=== PATIENT | female | born 1985 | race Caucasian/White ===

== ENCOUNTER 2017-06-27 11:06 | Day surgery (SDC) | payer BC, OTHER ==
[~2017-06-27 11:06] MED LIST: DIPHENHYDRAMINE HCL 50 MG/ML VIAL ONE; EPINEPHRINE INJ 1 MG/10 ML DISP.SYRIN ONE; FENTANYL CITRATE INJ/PF 100 MCG/2 ML AMPUL ONE; FLUMAZENIL INJ 0.5 MG/5 ML VIAL ONE; GLUCAGON,HUMAN RECOMB 1 MG INJ ONE; NALOXONE HCL INJ/PF 0.4 MG/1 ML SDV ONE; ONDANSETRON HCL INJ/PF 4 MG/2 ML SDV ONE
[2017-06-27] MEDS: MIDAZOLAM 2 MG/2 ML INJ ONE ×3 (11:36→11:42)
--- NOTE | 2017-06-27 11:52 | Operative Report ---
Operative Report DATE OF SURGERY: 06/27/17 Operative Report: The risks benefits and alternatives of the procedure explained to the patient in detail and informed consent is obtained.A GIF Olympus video scope was inserted into the patient's mouth and hypopharynx ,the esophagus is identified intubated and insufflated, the scope was then advanced through the esophagus stomach and duodenum ,retroflexion maneuver is done, the esophagus stomach and first and second portions of the duodenum examined PREOPERATIVE DIAGNOSIS: Dysphagia, gastroesophageal reflux disease POSTOPERATIVE DIAGNOSIS: Esophageal ring status post biopsy rule out eosinophilic esophagitis. Hiatal hernia. Schatzki's ring. Severe erosive esophagitis. Gastritis status post biopsy rule out Helicobacter pylori OPERATION: EGD with biopsy SURGEON: KOBI STERN ANESTHESIA: Moderate Sedation - 6 mg of Versed, 100 mcg of fentanyl. Conscious sedation monitoring time 30 minutes. TISSUE REMOVED OR ALTERED: Esophageal mucosal specimens obtained. Gastric mucosal specimens obtained COMPLICATIONS: None. ESTIMATED BLOOD LOSS: None. INTRAOPERATIVE FINDINGS: As described above. PROCEDURE: Patient tolerated procedure well. No immediate postprocedure complications are noted. Patient discharged in good condition. Discharge date 06/27/2017. Discharge diet: Regular. Discharge activity: Regular. 2-3 week follow-up to discuss findings. Patient is instructed to call the office should there be any further problems or questions. We will wait on pathology. We will treat if positive for Helicobacter pylori.
[2017-06-27] MEDS ORDERED: ACETAMINOPHEN 325 MG TABLET ONE (12:42)
[2017-06-27 13:05] VITALS: BP 115/76
== END 2017-06-27 13:15 | disposition home or self-care (01) ==
LOC: END 11:06
PROVIDERS: ATTEND Internal Medicine Gastroenterology
PROC: 0DB58ZX Excision of Esophagus, Via Natural or Artificial Opening Endoscopic, Diagnostic (ICD-10-PCS; 2017-06-27)
PROC: 0DB68ZX Excision of Stomach, Via Natural or Artificial Opening Endoscopic, Diagnostic (ICD-10-PCS; principal; 2017-06-27 11:30)
DX: K29.50 Unspecified chronic gastritis without bleeding (principal); K22.2 Esophageal obstruction; K44.9 Diaphragmatic hernia without obstruction or gangrene; K20.9 Esophagitis, unspecified; Z79.51 Long term (current) use of inhaled steroids; Z79.899 Other long term (current) drug therapy
CPT/HCPCS: 43239; 88305 ×2; J2250; J3010; J0171; J1200; J1610; J2310; J2405; J3490

== ENCOUNTER 2017-08-15 08:24 | Day surgery (SDC) | payer OTHER ==
[~2017-08-15 08:24] MED LIST changes: -FENTANYL CITRATE INJ/PF 100 MCG/2 ML AMPUL ONE
[2017-08-15] MEDS: MIDAZOLAM 2 MG/2 ML INJ ONE ×3 (09:58→10:04)
[2017-08-15] MEDS: FENTANYL CITRATE INJ/PF 100 MCG/2 ML AMPUL ONE ×2 (10:00→10:03)
[2017-08-15 11:14] VITALS: BP 109/91
--- NOTE | 2017-08-15 11:14 | Operative Report ---
Operative Report DATE OF SURGERY: 08/15/17 Operative Report: The risks benefits and alternatives of the procedure explained to the patient in detail and informed consent is obtained.A GIF Olympus video scope was inserted into the patient's mouth and hypopharynx, the esophagus is identified intubated and insufflated ,the scope was then advanced through the esophagus stomach and duodenum, retroflexion maneuver is done ,the esophagus stomach and first and second portions of the duodenum examined PREOPERATIVE DIAGNOSIS: Follow-up esophageal ulcer. POSTOPERATIVE DIAGNOSIS: Healed esophageal ulcer. Less evidence of eosinophilic esophagitis. Hiatal hernia. Gastritis mild status post biopsy rule out Helicobacter pylori OPERATION: EGD with biopsy SURGEON: KOBI STERN ANESTHESIA: Moderate Sedation - 5 mg of Versed, 100 mcg of fentanyl. Conscious sedation monitoring time is 30 minutes. TISSUE REMOVED OR ALTERED: As noted above. COMPLICATIONS: None. ESTIMATED BLOOD LOSS: None. INTRAOPERATIVE FINDINGS: As described above. PROCEDURE: Patient tolerated procedure well. No immediate postprocedure complications are noted. Patient discharged in good condition. Discharge date 08/15/2017. Discharge diet: Regular. Discharge activity: Regular. 2-3 week follow-up to discuss findings. Patient is instructed to call the office or proceed to the emergency room should there be any further problems or questions. We will wait on pathology.
== END 2017-08-15 11:15 | disposition home or self-care (01) ==
LOC: END 08:24
PROVIDERS: ATTEND Internal Medicine Gastroenterology
PROC: 0DB68ZX Excision of Stomach, Via Natural or Artificial Opening Endoscopic, Diagnostic (ICD-10-PCS; principal; 2017-08-15 09:30)
DX: K29.50 Unspecified chronic gastritis without bleeding (principal); K44.9 Diaphragmatic hernia without obstruction or gangrene; K21.9 Gastro-esophageal reflux disease without esophagitis; K20.0 Eosinophilic esophagitis; Z87.11 Personal history of peptic ulcer disease; Z79.51 Long term (current) use of inhaled steroids; Z79.899 Other long term (current) drug therapy
CPT/HCPCS: 43239; 88342 ×2; 88305 ×2; J2250; J0171; J3010; J1200; J1610; J2310; J2405; J3490

== ENCOUNTER 2018-05-13 09:09 | Inpatient (IN) | payer OTHER ==
[2018-05-13] MEDS ORDERED: ONDANSETRON HCL INJ/PF 4 MG/2 ML SDV ONE (10:52)
[2018-05-13] MEDS ORDERED: MIDAZOLAM 2 MG/2 ML INJ ONE ×2 (10:53)
[2018-05-13] MEDS ORDERED: FENTANYL CITRATE INJ/PF 100 MCG/2 ML AMPUL ONE (10:53)
[2018-05-13] MEDS ORDERED: EPHEDRINE SULFATE INJ 50 MG/1 ML AMPULE ONE (10:53)
[2018-05-13] MEDS ORDERED: OXYTOCIN 10 UNIT/ML VIAL ONE (10:53)
[2018-05-13] MEDS ORDERED: BUPIVACAINE HCL/DEX-WATER/PF 15 MG/2 ML AMPULE ONE (10:54)
[2018-05-13] MEDS ORDERED: DIPH/PERTUSS(ACELL)/TETANUS VAC/PF 0.5 ML SYR (>=10YO) IM PRN (11:04)
[2018-05-13] MEDS ORDERED: OXYTOCIN/NORMAL SALINE 20 UNIT/1,000 ML RTUINJ IV PRN (11:04)
[2018-05-13] MEDS ORDERED: ACETAMINOPHEN 325 MG TABLET PO PRN (11:04)
[2018-05-13] MEDS ORDERED: SIMETHICONE 80 MG TAB.CHEW PO PRN (11:04)
[2018-05-13] MEDS ORDERED: MEASLES,MUMPS&RUBELLA VACC/PF 0.5 ML VIAL SUBCUT PRN (11:04)
[2018-05-13] MEDS ORDERED: PROMETHAZINE HCL INJ 25 MG/1 ML VIAL IV PRN (11:04)
[2018-05-13] MEDS ORDERED: RINGERS SOLUTION,LACTATED 1,000 ML IV PRN (11:04)
[2018-05-13] MEDS ORDERED: OXYCODONE-ACETAMINOPHEN 5-325 MG TABLET PO PRN (11:04)
[2018-05-13] MEDS ORDERED: ACETAMINOPHEN 1,000 MG/100 ML RTUPB IV PRN (11:04)
[2018-05-13] MEDS ORDERED: CEFAZOLIN 2 GM/D5W RTU 2 GM/50 ML RTUPB IV ONE (11:06)
[2018-05-13] MEDS ORDERED: CITRIC ACID/SODIUM CITRATE ORAL SOLN 15 ML UDCUP ONE (11:06)
[2018-05-13 11:12] LABS: ABSOLUTE BASOPHILS # (AUTO) 0.1 10^3/uL (0.0-0.2); ABSOLUTE EOSINOPHILS # (AUTO) 0.1 10^3/uL (0.0-0.6); ABSOLUTE LYMPHOCYTES (AUTO) 2.5 10^3/uL (0.5-4.7); ABSOLUTE MONOCYTES (AUTO) 0.7 10^3/uL (0.1-1.4); ABSOLUTE NEUT (AUTO) 5.9 10^3/uL (1.7-8.2); BASOPHILS % (AUTO) 0.8 % (0-2); HEMATOCRIT 32.5 % (36.0-47.0); HEMOGLOBIN 10.3 g/dL (12.0-15.5); LYMPHOCYTES % (AUTO) 26.8 % (13-45); MEAN CORPUSCULAR HEMOGLOBIN 24.5 pg (27.0-33.4); MEAN CORPUSCULAR HGB CONC 31.7 g/dL (32.0-36.0); MEAN CORPUSCULAR VOLUME 77 fl (80-97); MONOCYTES % (AUTO) 7.9 % (3-13); PLATELET COUNT 432 10^3/uL (150-450); RED CELL DISTRIBUTION WIDTH 15.2 % (11.5-14.0); SEGMENTED NEUTROPHILS % (AUTO) 63.5 % (42-78); TOTAL CELLS COUNTED % (AUTO) 100 %; WHITE BLOOD COUNT 9.2 10^3/uL (4.0-10.5)
--- NOTE | 2018-05-13 11:15 | Admission Physical ---
Datetime Report Generated by CPN: 05/13/2018 11:14 CURRENT ADMISSION Chief Complaint: Other Chief Complaint Other: Sent from [facility] with BPP of 2/8, repeat c section. Indication for Induction: Not Applicable Admit Impression : Term, Intrauterine Admit Plan: Admit to Unit; Initiate Section Protocol ALLERGIES Medication Allergies: No Medication Allergies: No Known Allergies (08/15/2017) Latex: No Latex Allergies Food Allergies: N/A Environmental Allergies: Seasonal OBSTETRICAL HISTORY EDC: 05/25/2018 00:00 : 2 Para: 1 Term: 0 : 1 SAB: 0 IAB: 0 Ectopic: 0 Livin Cesareans: 1 VBACs: 0 Multiple Births: 0 Gestational Diabetes: No Rh Sensitization: No Incompetent Cervix: No CATHRYN: No Infertility: No ART Treatment: No Uterine Anomaly: No IUGR: No Hx Previous C/S: Yes Macrosomia: No Hx Loss/Stillborn: No PIH: No Hx : No Placenta Previa/Abruption: No Depression/PP Depression: No PTL/PROM: No Post Hemorrhage: No Current Procedures: NST; CLINICAL APPEALS SPECIALIST; BPP Obstetrical History Comments: G1- Pre-E, failed induction, C/S 2013 G2- SEE RECORDS Alcohol: No Marijuana : No Cocaine: No Other Illicit Drugs: No Cigarettes: Never Smoker. [id number] MEDICAL HISTORY Diabetes: No Blood Transfusion: No Pulmonary Disease (Asthma, TB): Yes Breast Disease: No Hypertension: No Gas Operator Surgery: No Heart Disease: No Hosp/Surgery: Yes Autoimmune Disorder: No Anesthetic Complications: No Kidney Disease: No Abnormal Pap Smear: No Neuro/Epilepsy: No Psychiatric Disorders: No Other Medical Diseases: No Hepatitis/Liver Disease: No Significant Family History: No Varicosities/Phlebitis: No Trauma/Violence : No Thyroid Dysfunction: No Medical History Comments: Sports asthma as child, C/S 2013, Oral surgery 2004 INFECTIOUS HISTORY Gonorrhea: No Genital Herpes: No Chlamydia: No Tuberculosis: No Syphilis: No Hepatitis: No HIV/AIDS Exposure: No Rash or Viral Illness: No HPV: No PHYSICAL EXAM General: Normal HEENT: Normal Neurologic: Normal Thyroid: Normal Heart: Normal Lungs: Normal Breast: Deferred Back: Normal Abdomen: Normal Genitourinary Exam: Normal Extremities: Normal DTRs: Normal Pelvic Type: Adequate Vital Signs: Reviewed VAGINAL EXAM Dilatation: 0 Effacement: 100 MEMBRANES Pooling: Positive Membranes: Ruptured FETUS A EGA: 38.2 FHR- Baseline: 140 Variability: Minimal - Undetectable to <=5bpm FHR Category: Category II Admit Comment: We will proceed with a repeat c section. PLANS FOR LABOR AND DELIVERY Labor and Delivery: None Pain Management: Natural Feeding Preference: Breast Benefit of Breast Feed Discussed: Yes Circumcision: Yes INFORMED CONSENT Signature: with User ID: [email or web address]
--- NOTE | 2018-05-13 12:11 | Operative Report ---
Operative Report DATE OF SURGERY: 05/13/18 PREOPERATIVE DIAGNOSIS: Repeat nonreassuring status POSTOPERATIVE DIAGNOSIS: Same OPERATION: Primary via low transverse uterine incision SURGEON: MATTEO DARNELL ANESTHESIA: Spinal TISSUE REMOVED OR ALTERED: Placenta COMPLICATIONS: None ESTIMATED BLOOD LOSS: 250 cc INTRAOPERATIVE FINDINGS: Viable male crying at delivery PROCEDURE: Patient was taken to the OR and placed in supine position after her spinal anesthesia. She is prepared and draped in sterile fashion. Germain was placed for drainage of the bladder. Low transverse incision was made and carried down the level of the fascia. The fascial incision was made with knife and extended bilaterally with curved Gonzalez scissors. The fascia was off the rectus muscles using sharp and blunt dissection. The rectus muscles are in the midline. The peritoneum was entered without incident. Bladder blade was placed in uterine segment was identified. A low transverse incision was made creating a bladder flap. Bladder blade was placed low transverse uterine incision was made with the csafe knife and extended with fingertips. The baby was delivered with some fundal pressure. Mouth and nose were suctioned free. The cord is doubly clamped and cut. Baby is passed off to the cytology laboratory manager in attendance. The placenta was manually extracted with trailing membranes. The uterus was externalized wrapped in a moist lap sponge. Uterine contents wiped free. Uterus was closed with a running locking layer of 0 chromic suture using the second layer to imbricate the first completing a double layer closure of the uterus. The serosa was closed with a running 2-0 chromic stitch. The pelvis was irrigated and suctioned free of fluid the uterus was replaced in the abdomen. The abdominal wall peritoneum was closed with running 2-0 chromic stitch. Fascia was closed with a running 0 Vicryl in 2 segments. Jillian's layer was brought together with 0 plain gut stitch and the skin was closed with running subcuticular 4-0 undyed Vicryl stitch. The wound was dressed mother and baby did well.
[2018-05-13 12:21] LABS: APPEARANCE,URINE CLEAR; BILIRUBIN,URINE NEGATIVE (NEGATIVE); COLOR,URINE STRAW; GLUCOSE, URINE NEGATIVE (NEGATIVE); KETONES,URINE NEGATIVE (NEGATIVE); LEUKOCYTE ESTERASE,URINE TRACE (NEGATIVE); NITRITE,URINE NEGATIVE (NEGATIVE); PROTEIN,URINE NEGATIVE (NEGATIVE); UROBILINOGEN,URINE NEGATIVE mg/dL (<2.0)
[2018-05-13] MEDS ORDERED: ACETAMINOPHEN 1,000 MG/100 ML RTUPB IV ONE (12:25)
[2018-05-13 12:39] LABS: URINE AMPHETAMINES SCREEN NEGATIVE; URINE BARBITURATES SCREEN NEGATIVE; URINE BENZODIAZEPINES SCREEN NEGATIVE; URINE COCAINE SCREEN NEGATIVE; URINE MARIJUANA (THC) SCREEN NEGATIVE; URINE METHADONE SCREEN NEGATIVE; URINE PHENCYCLIDINE SCREEN NEGATIVE
[2018-05-13] MEDS ORDERED: OXYTOCIN/NORMAL SALINE 20 UNIT/1,000 ML RTUINJ ONE (14:06)
[2018-05-13] MEDS: KETOROLAC TROMETHAMINE INJ/PF 30 MG/1 ML SDV IV SCH ×2 (14:42→22:32)
--- NOTE | 2018-05-13 14:57 | Delivery Summary ---
Del Sum A-C Datetime Report Generated by CPN: 05/13/2018 14:56 DELIVERY PERSONNEL DELIVERY PERSONNEL: [id number] Delivery Doctor:: Adriana Moscoso MD Anesthesiologist:: Francisco Almeida MD LAN SPECIALIST:: Jermaine Feldman CRNA Labor and Delivery Nurse:: Heriberto Hankins RNhealth lead Nurse:: Dory Kang RN Game Tester:: Dory Kang RN Passenger Screener:: Dr. Leonardo Ashford Nursery Nurse:: Meg Bueno RN Coater Operator Insulation Board/LICENSE INSPECTOR: ST Niya Coater Operator Insulation Board/LICENSE INSPECTOR: Susan Hernandez, RESIDENCE MANAGER MATERNAL INFORMATION Delivery Anesthesia: Spinal Medications After Delivery: Pitocin Drip 20 Units/1000ml NSS Meds After Delivery Comment: Ofirmev 1000 mg IV. Maternal Complications: None LABOR SUMMARY EDC: 05/25/2018 00:00 No. Babies in Womb: 1 Attempted: No Labor Anesthesia: None LABOR INFORMATION Onset of Labor: 05/12/2018 23:00 Group B Beta Strep: Negative Steroids Given: None Reason Steroids Not Administered: Not Applicable MEMBRANES Membranes Rupture Method: Spontaneous Rupture of Membranes: 05/12/2018 23:00 Length of Rupture (hr): 12.57 Amniotic Fluid Color: Light Meconium Amniotic Fluid Amount: Moderate Amniotic Fluid Odor: Normal STAGES OF LABOR Stage 3 hr: 0 Stage 3 min: 1 Total Time in Labor hr: 12 Total Time in Labor min: 35 VAGINAL DELIVERY Episiotomy: None Laceration #1: None Laceration Extension #1: N/A Sponge Count Correct: N/A CSECTION DELIVERY Primary Indication: Nonreassuring Status Secondary Indication: Repeat Elective CSection Urgency: Non-Scheduled CSection Incidence: Repeat Labor: No Labor Elective: Nonelective CSection Incision: Lower Uterine Transverse BABY A INFORMATION Infant Delivery Date/Time: 05/13/2018 11:34 Method of Delivery: Born in Route : No : N/A Forceps: N/A Vacuum Extraction: N/A Shoulder Dystocia : No PRESENTATION/POSITION BABY A Presentation: Cephalic Cephalic Presentation: Vertex PLACENTA INFORMATION BABY A Placenta Delivery Time : 05/13/2018 11:35 Placenta Method of Delivery: Manual Removal Placenta Status: Delivered SCORES BABY A Heart Rate 1 min: >100 bpm Resp Effort 1 min: Good Cry Reflex Irritability 1 min: Cough or Sneeze or Pulls Away Muscle Tone 1 min: Active Motion Color 1 min: Body [place], Extremities Blue Resuscitation Effort 1 min: Tactile Stimulation SCORE 1 MIN: 9 Heart Rate 5 min: >100 bpm Resp Effort 5 min: Good Cry Reflex Irritability 5 min: Cough or Sneeze or Pulls Away Muscle Tone 5 min: Active Motion Color 5 min: Body [place], Extremities Blue Resuscitation Effort 5 min: Tactile Stimulation SCORE 5 MIN: 9 INFORMATION BABY A Gestational Age at Delivery: 38.2 Gestational Status: Early Term- 37- 38.6 Weeks Outcome : Liveborn Infant Condition : Stable Sex: Male IDENTIFICATION BABY A Verification Date/Time: 05/13/2018 10:53 ID Band Number: [id number] Mother's Name Verified: Yes Infant WEIGHT/LENGTH BABY A Birthweight (gm): 2200 Infant Weight (lb): 4 Weight (oz): 14 Infant Length (in): 17.50 Length (cm): 44.45 CORD INFORMATION BABY A No. Cord Vessels: 3 Nuchal Cord : N/A Cord Blood Taken: Yes-For Eval (Mom's Blood Type - or O+) ASSESSMENT BABY A Skin to Skin: Yes Skin to Skin Time (min): 10
[2018-05-13] MEDS: OXYCODONE-ACETAMINOPHEN 5-325 MG TABLET PO PRN ×2 (16:08→20:53)
[2018-05-13] MEDS: DOCUSATE SODIUM 100 MG CAPSULE PO SCH (19:46)
[2018-05-14] MEDS: OXYCODONE-ACETAMINOPHEN 5-325 MG TABLET PO PRN ×5 (01:00→22:27)
[2018-05-14] MEDS: KETOROLAC TROMETHAMINE INJ/PF 30 MG/1 ML SDV IV SCH (04:59)
[2018-05-14 07:58] LABS: HEMATOCRIT 24.9 % (36.0-47.0); MEAN CORPUSCULAR HEMOGLOBIN 25.2 pg (27.0-33.4); MEAN CORPUSCULAR HGB CONC 32.5 g/dL (32.0-36.0); MEAN CORPUSCULAR VOLUME 77 fl (80-97); PLATELET COUNT 369 10^3/uL (150-450); RED BLOOD COUNT 3.22 10^6/uL (3.72-5.28); RED CELL DISTRIBUTION WIDTH 15.3 % (11.5-14.0); WHITE BLOOD COUNT 10.4 10^3/uL (4.0-10.5)
[2018-05-14 08:12] LABS: HEMOGLOBIN 8.1 g/dL (12.0-15.5)
[2018-05-14] MEDS: PRENATAL VITAMIN W DHA CAPSULE PO SCH (09:36)
[2018-05-14] MEDS: DOCUSATE SODIUM 100 MG CAPSULE PO SCH ×2 (09:36→18:03)
--- NOTE | 2018-05-14 09:37 | PDOC PROGRESS REPORT ---
Subjective-OB Progress Note for:: 05/14/18 Subjective: Sitting up in bed, hsb at , crying, was suppose to deliver at [facility], that is where her Doctors are, went to [facility] yesterday and they sent her over here , asking alot of questions about cancelling appointments, getting her money back from [place], wanting forms filled out, anxious, thinks she might have some depression but declines medication. Want 3 months off for leave. Pain under control, eating ok, no nausea, no gas, OOB walking Physical Exam (OB) Vital Signs: Temp Pulse Resp BP Pulse Ox 97.8 F 90 18 136/82 H 98 05/14/18 08:16 05/14/18 08:16 05/14/18 08:16 05/14/18 08:16 05/14/18 08:16 Intake & Output 05/13/18 05/14/18 05/15/18 06:59 06:59 06:59 Intake Total 2040 1000 Output Total 1200 Balance 840 1000 Weight 110.677 kg - Dressing Removed: No - Opsite; small drainage noted Incision: Dressing - Lochia Lochia Amount: Small 10-25 ml Lochia Color: Rubra/Red - Abdomen Description: Tender, Soft Hernia Present: No Fundal Description: Firm, Midline Fundal Height: u/u - u/2 Objective-Diagnostic Laboratory: 05/14/18 07:32 05/13/18 05/13/18 05/13/18 09:30 10:56 10:56 WBC 9.2 RBC 4.20 Hgb 10.3 L Hct 32.5 L MCV 77 L MCH 24.5 L MCHC 31.7 L RDW 15.2 H Plt Count 432 Seg Neutrophils % 63.5 Lymphocytes % 26.8 Monocytes % 7.9 Eosinophils % 1.0 Basophils % 0.8 Absolute Neutrophils 5.9 Absolute Lymphocytes 2.5 Absolute Monocytes 0.7 Absolute Eosinophils 0.1 Absolute Basophils 0.1 Urine Color STRAW Urine Appearance CLEAR Urine pH 6.0 Ur Specific [place] 1.010 Urine Protein NEGATIVE Urine Glucose (UA) NEGATIVE Urine Ketones NEGATIVE Urine Blood NEGATIVE Urine Nitrite NEGATIVE Ur Leukocyte Esterase TRACE H Blood Type O NEGATIVE Antibody Screen NEGATIVE 05/14/18 05/14/18 07:32 07:32 WBC 10.4 RBC 3.22 L Hgb 8.1 L D Hct 24.9 L MCV 77 L MCH 25.2 L MCHC 32.5 RDW 15.3 H Plt Count 369 Seg Neutrophils % Lymphocytes % Monocytes % Eosinophils % Basophils % Absolute Neutrophils Absolute Lymphocytes Absolute Monocytes Absolute Eosinophils Absolute Basophils Urine Color Urine Appearance Urine pH Ur Specific [place] Urine Protein Urine Glucose (UA) Urine Ketones Urine Blood Urine Nitrite Ur Leukocyte Esterase Blood Type O NEGATIVE Antibody Screen Assessment and Plan(PN) - Assessment and Plan (1) Intrauterine growth restriction, antepartum Qualifiers: Fetus number: single or unspecified fetus Qualified Code(s): O36.5990 - Maternal care for other known or suspected poor growth, unspecified trimester, not applicable or unspecified Is this a current diagnosis for this admission?: Yes (2) Status post repeat low transverse section Is this a current diagnosis for this admission?: Yes - Time Spent with Patient Time with patient: Less than 15 minutes Medications reviewed and adjusted accordingly: Yes - Disposition Anticipated Discharge: Home Within: within 48 hours
[2018-05-14] MEDS: IBUPROFEN 800 MG TABLET PO SCH ×3 (11:15→23:33)
[2018-05-15] MEDS: OXYCODONE-ACETAMINOPHEN 5-325 MG TABLET PO PRN ×3 (02:48→12:14)
[2018-05-15] MEDS: IBUPROFEN 800 MG TABLET PO SCH ×2 (05:22→11:07)
[2018-05-15 07:39] LABS: HEMATOCRIT 26.4 % (36.0-47.0); HEMOGLOBIN 8.5 g/dL (12.0-15.5); MEAN CORPUSCULAR HEMOGLOBIN 24.9 pg (27.0-33.4); MEAN CORPUSCULAR HGB CONC 32.2 g/dL (32.0-36.0); MEAN CORPUSCULAR VOLUME 77 fl (80-97); PLATELET COUNT 422 10^3/uL (150-450); RED BLOOD COUNT 3.42 10^6/uL (3.72-5.28); RED CELL DISTRIBUTION WIDTH 15.6 % (11.5-14.0); WHITE BLOOD COUNT 10.1 10^3/uL (4.0-10.5)
[2018-05-15] MEDS: PRENATAL VITAMIN W DHA CAPSULE PO SCH (10:01)
[2018-05-15] MEDS: DOCUSATE SODIUM 100 MG CAPSULE PO SCH (10:01)
--- NOTE | 2018-05-15 10:05 | PDOC DISCHARGE SUMMARY ---
Final Diagnosis Discharge Date: 05/15/18 - Final Diagnosis (1) Intrauterine growth restriction, antepartum Is this a current diagnosis for this admission?: Yes (2) Status post repeat low transverse section Is this a current diagnosis for this admission?: Yes Discharge Data - Discharge Medication Home Medications: Dexlansoprazole [Dexilant 60 mg Capsule] 60 mg PO DAILY 08/12/17 Fluticasone Propionate [Flonase Nasal [place] 50 Mcg/[place] 16 gm] 2 sprays NASL Q12 08/12/17 Vit No.130/Iron/Folic [ Vitamins] 1 each PO DAILY 05/13/18 Reason(s) for Admission: Ceasarean Section-Repeat, Obstetric Complications Admission Note: Sent from [facility] Satellite office for BPP 11/13 Procedures: Management of Obstetric Complications Intrapartum Procedure(s): : Low Cervical, Transverse - Diagnosis Test Laboratory: Temp Pulse Resp BP Pulse Ox 98.1 F 92 17 134/83 H 97 05/15/18 08:38 05/15/18 08:38 05/15/18 08:38 05/15/18 08:38 05/15/18 08:38 05/13/18 05/13/18 05/14/18 09:30 10:56 07:32 RBC 4.20 3.22 L Hgb 10.3 L 8.1 L D Hct 32.5 L 24.9 L Urine Opiates Screen NEGATIVE 05/15/18 07:28 RBC 3.42 L Hgb 8.5 L Hct 26.4 L Urine Opiates Screen - Discharge information/Instructions Discharge Activity: Balance Activity w/Rest, No Lifting Over 10 Pounds, No Lifting/Push/Pulling, Pelvic Rest, No tub bath Discharge Diet: Regular Disposition: HOME, SELF-CARE Follow [facility]: 5, Days
[2018-05-15 11:38] VITALS: BP 141/87
[2018-05-16 12:37] LABS: HEPATITIS C QUANTITATION HCV Not Detected IU/mL (.)
== END 2018-05-15 13:26 | disposition home or self-care (01) | DRG 765 ==
LOC: LC 09:09 → LR 09:45 → 2S 14:28
PROVIDERS: ADMIT Obstetrics & Gynecology; ATTEND Obstetrics & Gynecology
PROC: 10D00Z1 Extraction of Products of Conception, Low, Open Approach (ICD-10-PCS; principal; 2018-05-13)
PROC: 3E0234Z Introduction of Serum, Toxoid and Vaccine into Muscle, Percutaneous Approach (ICD-10-PCS; 2018-05-15)
DX: O34.211 Maternal care for low transverse scar from previous cesarean delivery (principal); O36.0930 Maternal care for other rhesus isoimmunization, third trimester, not applicable or unspecified; O36.5930 Maternal care for other known or suspected poor fetal growth, third trimester, not applicable or unspecified; O76 Abnormality in fetal heart rate and rhythm complicating labor and delivery; N85.8 Other specified noninflammatory disorders of uterus; O99.62 Diseases of the digestive system complicating childbirth; K21.9 Gastro-esophageal reflux disease without esophagitis; O77.0 Labor and delivery complicated by meconium in amniotic fluid; O99.344 Other mental disorders complicating childbirth; F32.9 Major depressive disorder, single episode, unspecified; O90.6 Postpartum mood disturbance; Z3A.38 38 weeks gestation of pregnancy; Z37.0 Single live birth
CPT/HCPCS: 1961; 36415; 80307; 81005; 85025; 85027; 85461; 86592; 86850; 86900; 86901; 87522; 88307; 94799; J0131; J0690; J1885; J2250; J2405; J2590; J2790; J3010; J3490; J7120